=== PATIENT | female | born 1960 | race Caucasian/White ===

== ENCOUNTER → 2021-06-22 | Outpatient (CLI) | payer BC ==
[~2021-06-22] MED LIST: ACET1TAB12 PO; AEC81 PO; BISM262T18 PO; CALC1TAB2 PO; CLIN300C10 PO; DICL2100G TP; FOLI0.8T3 PO; HYDR-4060 PO; LEFL20TA18 PO; LEVO125T95 PO; LIDO1ADH48 TP; LORA2TAB2 PO; LUBI24CA2 PO; MULT-725 PO; PRED5TAB PO; PREG75 PO; TRAM50TA4 PO; UPAD15TA PO; VITA-164 PO; VITAMIN B12 PO; WARF2.5T PO
== END | disposition home or self-care (01) ==
LOC: OIH 08:08
PROVIDERS: ATTEND Internal Medicine
DX: R06.02 Shortness of breath (principal)
CPT/HCPCS: 71046

== ENCOUNTER 2021-06-23 15:14 | Inpatient (IN) | payer BC ==
[~2021-06-23] VITALS: Ht 162.6 cm; Wt 80.7 kg
[~2021-06-23 15:14] MED LIST changes: -AEC81 PO; -CLIN300C10 PO; -FOLI0.8T3 PO; -IOHEXOL 350 MG/ML 100ML INFUS..BTL IV ONE; -UPAD15TA PO
[2021-06-23 15:28] VITALS: BP 128/78
[2021-06-23 16:00] LABS: BASOPHILS % (AUTO) 0.8 % (0.0-5.0); EOSINOPHILS % (AUTO) 0.3 % (0.0-8.0); HEMATOCRIT 42.5 % (36-48); LYMPHOCYTES % (AUTO) 14.3 % (21.0-51.0); MEAN CORPUSCULAR HGB CONC 32.2 g/dL (32.0-36.0); MEAN CORPUSCULAR VOLUME 93.2 fL (79-99); MONOCYTES % (AUTO) 6.7 % (3.0-13.0); NEUTROPHILS % (AUTO) 77.6 % (40.0-77.0); PLATELET COUNT (AUTO) 231 K/uL (130-400); RED BLOOD CELL COUNT(AUTO) 4.56 MIL/uL (4.00-5.50); RED CELL DISTRIBUTION WIDTH 16.1 % (11.0-15.5); WHITE BLOOD COUNT (AUTO) 6.3 K/uL (4.8-10.8)
[2021-06-23 16:10] LABS: APPEARANCE,URINE Clear (CLEAR); BILIRUBIN,URINE Negative (NEGATIVE); COLOR,URINE Yellow (YELLOW); GLUCOSE, URINE (UA) Negative (NEGATIVE); KETONES,URINE Negative (NEGATIVE); LEUKOCYTE ESTERASE ,URINE Negative (NEGATIVE); NITRATE,URINE Negative (NEGATIVE); OCCULT BLOOD,URINE Negative (NEGATIVE); PH,URINE 6.5 (5.0-8.0); PROTEIN,URINE Negative (NEGATIVE); UROBILINOGEN,URINE 0.2 mg/dL (0.2-1.0)
[2021-06-23 16:12] LABS: INR 1.06 (0.85-1.15); PROTHROMBIN TIME 11.5 SEC (9.6-11.6)
[2021-06-23 16:13] LABS: PARTIAL THROMBOPLASTIN TIME 27.3 SEC (26.3-35.5)
[2021-06-23 16:23] LABS: CREATININE 0.8 mg/dL (0.5-1.5); POTASSIUM 3.8 mmol/L (3.5-5.1)
[2021-06-23 16:24] LABS: B-TYPE NATRIURETIC PEPTIDE 20 pg/mL (0-100)
[2021-06-23 16:28] LABS: ALBUMIN 3.5 g/dL (3.5-5.0); BILIRUBIN,TOTAL 0.7 mg/dL (0.2-1.0); TOTAL PROTEIN, SERUM 6.9 g/dL (6.0-8.3)
[2021-06-23] MEDS ORDERED: PRED5TAB PO (16:48)
[2021-06-23] MEDS ORDERED: CLIN300C10 PO (16:48)
[2021-06-23] MEDS ORDERED: FOLI0.8T3 PO (16:48)
[2021-06-23] MEDS ORDERED: UPAD15TA PO (16:48)
[2021-06-23] MEDS ORDERED: AEC81 PO (16:48)
[2021-06-23 18:00] VITALS: BP 138/86
[2021-06-23 20:08] VITALS: BP 130/72
[2021-06-23 21:00] VITALS: BP 137/73
[2021-06-23] MEDS: ENOXAPARIN SODIUM 80 MG/0.8 ML SQ SCH (22:06)
[2021-06-23 23:29] VITALS: BP 122/90
[2021-06-24] MEDS ORDERED: VOLTAREN 1% TP PRN (02:00)
[2021-06-24] MEDS ORDERED: HYDROCODONE/ACETAMINOPHEN 5/325 MG TAB PO PRN (02:00)
[2021-06-24] MEDS ORDERED: ASPERCREME TP SCH (02:00)
[2021-06-24] MEDS ORDERED: TRAMADOL HCL 50 MG TABLET PO PRN (02:00)
[2021-06-24 03:47] VITALS: BP 148/84
[2021-06-24 05:17] LABS: BASOPHILS % (AUTO) 1.4 % (0.0-5.0); EOSINOPHILS % (AUTO) 2.8 % (0.0-8.0); HEMATOCRIT 37.7 % (36-48); MEAN CORPUSCULAR HEMOGLOBIN 29.7 pg (27.0-33.0); MEAN CORPUSCULAR HGB CONC 32.6 g/dL (32.0-36.0); MEAN CORPUSCULAR VOLUME 91.1 fL (79-99); MONOCYTES % (AUTO) 14.9 % (3.0-13.0); NEUTROPHILS % (AUTO) 43.7 % (40.0-77.0); PLATELET COUNT (AUTO) 196 K/uL (130-400); RED BLOOD CELL COUNT(AUTO) 4.14 MIL/uL (4.00-5.50); RED CELL DISTRIBUTION WIDTH 15.9 % (11.0-15.5); WHITE BLOOD COUNT (AUTO) 4.2 K/uL (4.8-10.8)
[2021-06-24 05:37] LABS: ALBUMIN 2.9 g/dL (3.5-5.0); BILIRUBIN,TOTAL 0.6 mg/dL (0.2-1.0); CREATININE 0.7 mg/dL (0.5-1.5); POTASSIUM 4.4 mmol/L (3.5-5.1); TOTAL PROTEIN, SERUM 5.9 g/dL (6.0-8.3)
[2021-06-24 08:15] VITALS: BP 131/72
[2021-06-24] MEDS: ASPIRIN 81 MG EC TAB PO SCH (08:31)
[2021-06-24] MEDS: CLINDAMYCIN 150 MG CAP PO SCH ×3 (08:31→20:21)
[2021-06-24] MEDS: LEVOTHYROXINE 125 MCG TABLET PO SCH (08:32)
[2021-06-24] MEDS: PREDNISONE 5 MG TABLET PO SCH (08:33)
[2021-06-24] MEDS: FOLIC ACID 1 MG TABLET PO SCH (08:33)
[2021-06-24] MEDS: **HM** VIT B12 PO SCH (08:37)
[2021-06-24] MEDS: ENOXAPARIN SODIUM 80 MG/0.8 ML SQ SCH ×2 (08:37→20:27)
[2021-06-24 11:42] VITALS: BP 115/72
[2021-06-24 16:10] VITALS: BP 120/73
[2021-06-24 20:00] VITALS: BP 110/79
[2021-06-24] MEDS: VITAMIN E 400 UNIT CAPSULE PO SCH (20:20)
[2021-06-24] MEDS: CA 600MG+VIT D 400 UNIT TAB 1 TAB TABLET PO SCH (20:21)
[2021-06-24] MEDS: PREGABALIN 75 MG CAPSULE PO SCH (20:21)
[2021-06-24] MEDS: MULTIVITAMIN WITH MINERALS TABLET PO SCH (20:21)
[2021-06-24] MEDS: RINVOQ 15 MG PO SCH (20:27)
[2021-06-24] MEDS: **HM** LEFLUNOMIDE 20MG PO SCH (20:27)
[2021-06-24 23:53] VITALS: BP 128/80
[2021-06-25 03:58] VITALS: BP 141/78
[2021-06-25 05:46] LABS: MEAN CORPUSCULAR HEMOGLOBIN 29.9 pg (27.0-33.0); MEAN CORPUSCULAR HGB CONC 32.3 g/dL (32.0-36.0); MEAN CORPUSCULAR VOLUME 92.4 fL (79-99); RED BLOOD CELL COUNT(AUTO) 4.22 MIL/uL (4.00-5.50); RED CELL DISTRIBUTION WIDTH 16.2 % (11.0-15.5); WHITE BLOOD COUNT (AUTO) 5.3 K/uL (4.8-10.8)
[2021-06-25 06:06] LABS: CREATININE 0.8 mg/dL (0.5-1.5); POTASSIUM 4.1 mmol/L (3.5-5.1)
[2021-06-25 08:17] VITALS: BP 154/73
[2021-06-25] MEDS: **HM** VIT B12 PO SCH (09:00)
[2021-06-25] MEDS: ASPIRIN 81 MG EC TAB PO SCH (09:41)
[2021-06-25] MEDS: ENOXAPARIN SODIUM 80 MG/0.8 ML SQ SCH ×2 (09:41→21:41)
[2021-06-25] MEDS: FOLIC ACID 1 MG TABLET PO SCH (09:41)
[2021-06-25] MEDS: CLINDAMYCIN 150 MG CAP PO SCH ×3 (09:41→21:40)
[2021-06-25] MEDS: PREDNISONE 5 MG TABLET PO SCH (09:41)
[2021-06-25] MEDS: LEVOTHYROXINE 125 MCG TABLET PO SCH (09:41)
[2021-06-25 12:16] VITALS: BP 116/61
[2021-06-25 16:50] VITALS: BP 120/81
[2021-06-25 20:21] VITALS: BP 137/79
[2021-06-25] MEDS: **HM** LEFLUNOMIDE 20MG PO SCH (21:00)
[2021-06-25] MEDS: RINVOQ 15 MG PO SCH (21:00)
[2021-06-25] MEDS: VITAMIN E 400 UNIT CAPSULE PO SCH (21:40)
[2021-06-25] MEDS: PREGABALIN 75 MG CAPSULE PO SCH (21:40)
[2021-06-25] MEDS: CA 600MG+VIT D 400 UNIT TAB 1 TAB TABLET PO SCH (21:41)
[2021-06-25] MEDS: MULTIVITAMIN WITH MINERALS TABLET PO SCH (21:45)
[2021-06-26 00:03] VITALS: BP 141/86
[2021-06-26 04:00] VITALS: BP 147/75
[2021-06-26 08:00] VITALS: BP 145/75
[2021-06-26] MEDS: ASPIRIN 81 MG EC TAB PO SCH (08:13)
[2021-06-26] MEDS: CLINDAMYCIN 150 MG CAP PO SCH ×2 (08:14→13:29)
[2021-06-26] MEDS: PREDNISONE 5 MG TABLET PO SCH (08:14)
[2021-06-26] MEDS: LEVOTHYROXINE 125 MCG TABLET PO SCH (08:14)
[2021-06-26] MEDS: FOLIC ACID 1 MG TABLET PO SCH (08:14)
[2021-06-26] MEDS: ENOXAPARIN SODIUM 80 MG/0.8 ML SQ SCH (08:15)
[2021-06-26] MEDS: **HM** VIT B12 PO SCH (08:15)
[2021-06-26 12:00] VITALS: BP 122/65
[2021-06-26 16:00] VITALS: BP 115/78
== END 2021-06-26 17:00 | disposition home or self-care (01) | DRG 176 ==
LOC: EDH 15:14 → EDHIP 17:00 → 3BH 20:21
PROVIDERS: ADMIT Internal Medicine; ATTEND Internal Medicine
DX: I26.99 Other pulmonary embolism without acute cor pulmonale (principal); D68.62 Lupus anticoagulant syndrome; E03.9 Hypothyroidism, unspecified; E66.9 Obesity, unspecified; R09.02 Hypoxemia; M06.9 Rheumatoid arthritis, unspecified; Z79.82 Long term (current) use of aspirin; Z68.30 Body mass index [BMI] 30.0-30.9, adult; Z79.01 Long term (current) use of anticoagulants; Z86.718 Personal history of other venous thrombosis and embolism; Z88.0 Allergy status to penicillin
CPT/HCPCS: 36415; 71046; 80048; 80053; 81003; 83880; 84484; 85025; 85027; 85378; 85610; 85730; 93005; 93306; 93356; 93970; G0378; J1650; J7512

== ENCOUNTER → 2021-06-23 | Outpatient (CLI) | payer BC ==
[~2021-06-23] MED LIST changes: +IOHEXOL 350 MG/ML 100ML INFUS..BTL IV ONE
== END | disposition home or self-care (01) ==
LOC: RAH 14:03
PROVIDERS: ATTEND Internal Medicine
DX: I26.99 Other pulmonary embolism without acute cor pulmonale (principal); R06.02 Shortness of breath
CPT/HCPCS: 71275; Q9967

== ENCOUNTER → 2022-01-17 | Outpatient (CLI) | payer BC ==
[~2022-01-17] MED LIST changes: -ACET1TAB12 PO; +AEC81 PO; +CLIN-141 PO; +FOLI0.8T3 PO; -LORA2TAB2 PO; -LUBI24CA2 PO; +UPAD15TA PO; -WARF2.5T PO
== END | disposition home or self-care (01) ==
LOC: RAH 16:32
PROVIDERS: ATTEND Podiatrist
DX: S92.505D Nondisplaced unspecified fracture of left lesser toe(s), subsequent encounter for fracture with routine healing (principal); X58.XXXD Exposure to other specified factors, subsequent encounter
CPT/HCPCS: 73630

== ENCOUNTER → 2022-02-09 | Outpatient (CLI) | payer BC | END | disposition home or self-care (01) | LOC: RAH 10:00 | PROVIDERS: ATTEND Podiatrist | DX: S92.505D Nondisplaced unspecified fracture of left lesser toe(s), subsequent encounter for fracture with routine healing (principal); X58.XXXD Exposure to other specified factors, subsequent encounter | CPT/HCPCS: 73630 ==

== ENCOUNTER 2022-06-27 19:45 | Emergency (ER) | payer BC ==
[~2022-06-27] VITALS: Ht 162.6 cm; Wt 95.3 kg
[2022-06-27 19:45] VITALS: BP 130/70
[2022-06-27] MEDS ORDERED: KETOROLAC 30MG VIAL (30MG/ML) ONE (20:19)
[2022-06-27] MEDS ORDERED: ORPHENADRINE CITRATE 30 MG/ML ML ONE (20:19)
[2022-06-27] MEDS ORDERED: ORPHENADRINE CITRATE 30 MG/ML ML IVP ONE (20:30)
[2022-06-27] MEDS ORDERED: KETOROLAC 30MG VIAL (30MG/ML) IVP ONE (20:30)
[2022-06-27] MEDS ORDERED: CYCL10TA16 PO (21:02)
[2022-06-27] MEDS ORDERED: FENTANYL CITRATE PF 50 MCG/1 ML 2ML VIAL IVP ONE (21:30)
== END 2022-06-27 21:40 | disposition home or self-care (01) ==
LOC: EDH 19:45
DX: M54.42 Lumbago with sciatica, left side (principal); Z79.1 Long term (current) use of non-steroidal anti-inflammatories (NSAID); Z79.52 Long term (current) use of systemic steroids; Z79.82 Long term (current) use of aspirin; Z88.0 Allergy status to penicillin
CPT/HCPCS: 99284; 96374; 96375; J3010; J1885; J2360

== ENCOUNTER → 2022-06-28 | Outpatient (CLI) | payer BC ==
[~2022-06-28] MED LIST changes: +CYCL10TA16 PO; +RIVA20TA PO
== END | disposition home or self-care (01) ==
LOC: RAH 13:27
PROVIDERS: ATTEND Neurological Surgery
DX: M51.16 Intervertebral disc disorders with radiculopathy, lumbar region (principal); M48.061 Spinal stenosis, lumbar region without neurogenic claudication; E05.00 Thyrotoxicosis with diffuse goiter without thyrotoxic crisis or storm; K44.9 Diaphragmatic hernia without obstruction or gangrene
CPT/HCPCS: 72148

== ENCOUNTER → 2022-07-02 | Outpatient (CLI) | payer BC ==
[~2022-07-02] MED LIST changes: +CLINDAMYCIN IVPB 900MG/50ML 50 ML IV ONE
[2022-07-02 11:11] LABS: BASOPHILS % (AUTO) 1.1 % (0.0-5.0); EOSINOPHILS % (AUTO) 4.5 % (0.0-8.0); HEMATOCRIT 45.1 % (36-48); LYMPHOCYTES % (AUTO) 26.4 % (21.0-51.0); MEAN CORPUSCULAR HGB CONC 31.7 g/dL (32.0-36.0); MEAN CORPUSCULAR VOLUME 94.7 fL (79-99); MONOCYTES % (AUTO) 11.1 % (3.0-13.0); NEUTROPHILS % (AUTO) 56.5 % (40.0-77.0); PLATELET COUNT (AUTO) 336 K/uL (130-400); RED BLOOD CELL COUNT(AUTO) 4.76 MIL/uL (4.00-5.50); RED CELL DISTRIBUTION WIDTH 15.1 % (11.0-15.5); WHITE BLOOD COUNT (AUTO) 8.5 K/uL (4.8-10.8)
[2022-07-02 11:20] LABS: CREATININE 0.7 mg/dL (0.5-1.5); POTASSIUM 3.6 mmol/L (3.5-5.1)
[2022-07-02 11:31] LABS: INR 0.96 (0.85-1.15); PROTHROMBIN TIME 10.5 SEC (9.6-11.6)
[2022-07-02 11:32] LABS: PARTIAL THROMBOPLASTIN TIME 23.3 SEC (26.3-35.5)
== END | disposition home or self-care (01) ==
LOC: EDSTATUS 08:00 → DAH 10:00
PROVIDERS: ATTEND Neurological Surgery
DX: U07.1 COVID-19 (principal); Z01.818 Encounter for other preprocedural examination; M54.16 Radiculopathy, lumbar region; M48.062 Spinal stenosis, lumbar region with neurogenic claudication; Z79.01 Long term (current) use of anticoagulants; Z79.82 Long term (current) use of aspirin; Z86.711 Personal history of pulmonary embolism; Z79.899 Other long term (current) drug therapy; Z98.890 Other specified postprocedural states
CPT/HCPCS: 36415; 71045; 80048; 85025; 85610; 85730; 87426

== ENCOUNTER 2022-07-12 12:00 | Observation (INO) | payer BC ==
[~2022-07-12] VITALS: Ht 162.6 cm; Wt 86.3 kg
[~2022-07-12 12:00] MED LIST changes: -BISM262T18 PO; -CLIN-141 PO; -CLINDAMYCIN IVPB 900MG/50ML 50 ML IV ONE; -CYCL10TA16 PO; -DICL2100G TP; -HYDR-4060 PO; -RIVA20TA PO; -UPAD15TA PO
[2022-07-12 14:29] VITALS: BP 131/64
[2022-07-16] MEDS ORDERED: CLINDAMYCIN IVPB 900MG/50ML 50 ML IV SCH (08:00)
[2022-07-17] VITALS (24 sets, daily range): BP systolic 90–160; BP diastolic 52–88
[2022-07-17] MEDS: CLINDAMYCIN IVPB 900MG/50ML 50 ML IV SCH ×2 (06:00→08:00)
[2022-07-17] MEDS ORDERED: LACTATED RINGERS 1000ML 1,000 ML IV ONE (06:13)
[2022-07-17] MEDS ORDERED: CYCL10TA16 PO (06:48)
[2022-07-17] MEDS ORDERED: RIVA20TA PO (06:49)
[2022-07-17] MEDS ORDERED: CEFAZOLIN SODIUM 1 GM VIAL ONE (07:08)
[2022-07-17] MEDS ORDERED: BUPIVACAINE/EPI/PF 0.25% 30ML VIAL IJ ONE (07:08)
[2022-07-17] MEDS ORDERED: THROMBIN-JMI 20000 UNIT KIT TP ONE (07:09)
[2022-07-17] MEDS ORDERED: MORPHINE PF 100MG/10ML AMP IV ONE ×2 (07:09→07:10)
[2022-07-17] MEDS ORDERED: MIDAZOLAM HCL 1 MG/ML 2ML VIAL ONE (07:16)
[2022-07-17] MEDS ORDERED: GLYCOPYRROLATE 1 MG/5 ML SYRINGE ONE ×2 (07:16→11:15)
[2022-07-17] MEDS ORDERED: PROPOFOL 10 MG/ML 20ML VIAL IV ONE (07:16)
[2022-07-17] MEDS ORDERED: FENTANYL CITRATE PF 50 MCG/1 ML 2ML VIAL ONE (07:16)
[2022-07-17] MEDS ORDERED: ROCURONIUM 10MG/1ML SYR 10 MG/ML ML ONE (07:16)
[2022-07-17] MEDS ORDERED: PHENYLEPHRINE HCL 10 MG/ML 1ML VIAL IV ONE (07:17)
[2022-07-17] MEDS ORDERED: LIDOCAINE PF 100MG/5ML (2%) SYRINGE 5ML ONE (07:17)
[2022-07-17] MEDS ORDERED: PROPOFOL 1000 MG/100 ML 200 ML IV ONE (07:26)
[2022-07-17] MEDS ORDERED: DEXAMETHASONE SOD PHOSPHATE 4 MG/ML 1ML VIAL ONE ×2 (08:23→08:26)
[2022-07-17] MEDS ORDERED: ONDANSETRON 4MG INJ ONE (08:31)
[2022-07-17] MEDS ORDERED: EPHEDRINE SULFATE 50 MG/ML AMPULE ONE (11:23)
[2022-07-17] MEDS ORDERED: LIDOCAINE TP SCH (13:00)
[2022-07-17] MEDS: LACTATED RINGERS 1000ML 1,000 ML IV SCH (13:00)
[2022-07-17] MEDS ORDERED: PROMETHAZINE HCL 25 MG/ML 1ML AMPULE IM PRN (13:00)
[2022-07-17] MEDS ORDERED: MORPHINE 2 MG SYG IVP PRN (13:00)
[2022-07-17] MEDS ORDERED: TRAMADOL HCL 50 MG TABLET PO PRN (13:00)
[2022-07-17] MEDS ORDERED: 0.9%NACL 10ML VIAL IVP PRN (13:00)
[2022-07-17] MEDS ORDERED: CLINDAMYCIN IVPB 900MG/50ML 50 ML IV SCH (13:00)
[2022-07-17] MEDS: DEXAMETHASONE SOD PHOSPHATE 4 MG/ML 1ML VIAL IVP SCH ×2 (13:00→21:17)
[2022-07-17] MEDS: CYCLOBENZAPRINE HCL 10 MG TABLET PO SCH ×2 (14:00→21:18)
[2022-07-17] MEDS ORDERED: VITAMIN E 400 UNIT CAPSULE PO SCH (21:00)
[2022-07-17] MEDS ORDERED: MULTIVITAMIN TABLET PO SCH (21:00)
[2022-07-17] MEDS ORDERED: CA 600MG+VIT D 400 UNIT TAB 1 TAB TABLET PO SCH (21:00)
[2022-07-17] MEDS ORDERED: LEFLUNOMIDE 20 MG PO SCH (21:00)
[2022-07-17] MEDS ORDERED: PREGABALIN 75 MG CAPSULE PO SCH (21:00)
[2022-07-17] MEDS: HYDROCODONE/ACETAMINOPHEN 5/325 MG TAB PO PRN (21:18)
[2022-07-18] MEDS: DEXAMETHASONE SOD PHOSPHATE 4 MG/ML 1ML VIAL IVP SCH ×2 (02:11→06:19)
[2022-07-18] MEDS: LACTATED RINGERS 1000ML 1,000 ML IV SCH (02:42)
[2022-07-18] MEDS: HYDROCODONE/ACETAMINOPHEN 5/325 MG TAB PO PRN ×2 (02:42→07:31)
[2022-07-18 04:39] VITALS: BP 140/75
[2022-07-18] MEDS ORDERED: LEVOTHYROXINE 125 MCG TABLET PO SCH (06:30)
[2022-07-18 07:30] VITALS: BP 120/69
[2022-07-18] MEDS ORDERED: PREDNISONE 5 MG TABLET PO SCH (09:00)
[2022-07-18] MEDS ORDERED: ENOXAPARIN SODIUM 40 MG/0.4 ML SYRINGE SQ SCH (09:00)
[2022-07-18] MEDS ORDERED: CYANOCOBALAMIN (VITAMIN B-12) 1,000 MCG TABLET PO SCH (09:00)
[2022-07-18] MEDS ORDERED: FOLIC ACID 1 MG TABLET PO SCH (09:00)
[2022-07-18] MEDS ORDERED: ASPIRIN 81 MG EC TAB PO SCH (09:00)
[2022-07-18] MEDS: CYCLOBENZAPRINE HCL 10 MG TABLET PO SCH (09:06)
== END 2022-07-18 10:30 | disposition home or self-care (01) ==
LOC: EDSTATUS 07-16 11:00 → DAHIP 07-17 05:57 → OBSVTOIN 07-17 05:57 → INTOOBSV 07-17 05:57 → 4CH 07-17 14:00
PROVIDERS: ADMIT Neurological Surgery; ATTEND Neurological Surgery
DX: M48.061 Spinal stenosis, lumbar region without neurogenic claudication (principal); Z20.822 Contact with and (suspected) exposure to COVID-19; I10 Essential (primary) hypertension; M54.16 Radiculopathy, lumbar region; M25.78 Osteophyte, vertebrae; M43.16 Spondylolisthesis, lumbar region; M51.26 Other intervertebral disc displacement, lumbar region; Z79.01 Long term (current) use of anticoagulants; Z86.711 Personal history of pulmonary embolism; Z79.899 Other long term (current) drug therapy
CPT/HCPCS: 87426; 63047; 63048 ×4; 22612; 22614; 20937; 96365; 96375; 72020; 96376; 96372; G0378 ×21; A4663; J7120 ×3; A4344; J3010; J0690; J3490 ×7; J2001; J2250; J2704 ×2; J2274 ×2; J2405; J1100 ×5; J2370; A6219; A4649 ×2; A4215; A4223; A4222; A4221; A4600; J7512; J1650

== ENCOUNTER 2022-08-07 12:56 | Emergency (ER) | payer BC ==
[~2022-08-07] VITALS: Ht 162.6 cm; Wt 86.2 kg
[~2022-08-07 12:56] MED LIST changes: +CYCL10TA16 PO; +RIVA20TA PO; -TRAM50TA4 PO
[2022-08-07] MEDS ORDERED: ORPHENADRINE CITRATE 30 MG/ML ML IM STA (13:33)
[2022-08-07] MEDS ORDERED: KETOROLAC 30MG VIAL (30MG/ML) IM STA (13:34)
[2022-08-07 14:56] VITALS: BP 151/70
[2022-08-07] MEDS ORDERED: ACETAMINOPHEN 325 MG TAB PO ONE (15:30)
[2022-08-07] MEDS ORDERED: ACET-66 PO (15:51)
== END 2022-08-07 16:19 | disposition home or self-care (01) ==
LOC: EDH 12:56
DX: M71.22 Synovial cyst of popliteal space [Baker], left knee (principal); M60.862 Other myositis, left lower leg; M54.32 Sciatica, left side; M19.90 Unspecified osteoarthritis, unspecified site; E03.9 Hypothyroidism, unspecified; Z98.890 Other specified postprocedural states; Z79.899 Other long term (current) drug therapy; Z86.718 Personal history of other venous thrombosis and embolism; Z79.82 Long term (current) use of aspirin; Z88.0 Allergy status to penicillin
CPT/HCPCS: 99284; 93971; 96372 ×2; J1885; J2360

== ENCOUNTER → 2022-08-08 | Outpatient (CLI) | payer BC ==
[~2022-08-08] MED LIST changes: +ACET-66 PO; +GADOTERATE MEGLUMINE 10 MMOL/20 ML VIAL IV ONE
== END | disposition home or self-care (01) ==
LOC: RAH 10:03
PROVIDERS: ATTEND Physical Medicine & Rehabilitation
DX: S33.130A Subluxation of L3/L4 lumbar vertebra, initial encounter (principal); M54.16 Radiculopathy, lumbar region; X58.XXXA Exposure to other specified factors, initial encounter; Y93.89 Activity, other specified; Y92.89 Other specified places as the place of occurrence of the external cause; Y99.8 Other external cause status
CPT/HCPCS: 72158; A9575

== ENCOUNTER → 2022-09-10 | Outpatient (CLI) | payer BC ==
[~2022-09-10] MED LIST changes: -GADOTERATE MEGLUMINE 10 MMOL/20 ML VIAL IV ONE
== END | disposition home or self-care (01) ==
LOC: RAH 11:03
PROVIDERS: ATTEND Physical Medicine & Rehabilitation
DX: I82.402 Acute embolism and thrombosis of unspecified deep veins of left lower extremity (principal); M71.22 Synovial cyst of popliteal space [Baker], left knee
CPT/HCPCS: 93971

== ENCOUNTER → 2022-09-17 | Outpatient (CLI) | payer BC | END | disposition home or self-care (01) | LOC: RAH 11:28 | PROVIDERS: ATTEND Internal Medicine | DX: S93.602A Unspecified sprain of left foot, initial encounter (principal); X58.XXXA Exposure to other specified factors, initial encounter; Y93.89 Activity, other specified; Y92.89 Other specified places as the place of occurrence of the external cause; Y99.8 Other external cause status | CPT/HCPCS: 73620 ==

== ENCOUNTER → 2023-02-01 | Outpatient (CLI) | payer BC ==
[~2023-02-01] MED LIST changes: -VITA-164 PO; +VITA-348 PO
== END | disposition home or self-care (01) ==
LOC: RAH 11:49
PROVIDERS: ATTEND Physical Medicine & Rehabilitation
DX: M47.816 Spondylosis without myelopathy or radiculopathy, lumbar region (principal); M48.062 Spinal stenosis, lumbar region with neurogenic claudication; M51.36 Other intervertebral disc degeneration, lumbar region
CPT/HCPCS: 72148

== ENCOUNTER → 2023-05-31 | Outpatient (CLI) | payer BC ==
[~2023-05-31] MED LIST changes: +GADOTERATE MEGLUMINE 10 MMOL/20 ML VIAL IV ONE
== END | disposition home or self-care (01) ==
LOC: RAH 13:03
PROVIDERS: ATTEND Otolaryngology Plastic Surgery within the Head & Neck
DX: H90.0 Conductive hearing loss, bilateral (principal)
CPT/HCPCS: 70553; A9575

== ENCOUNTER 2024-11-09 15:51 | Emergency (ER) | payer BC ==
[~2024-11-09] VITALS: Ht 162.6 cm; Wt 90.7 kg
[~2024-11-09 15:51] MED LIST changes: -GADOTERATE MEGLUMINE 10 MMOL/20 ML VIAL IV ONE; -LEFL20TA18 PO; +LEFL20TA22 PO
--- NOTE | 2024-11-09 16:01 | ERN ---
ED Note History of Present Illness Stated Complaint: RIGHT ARM SCRAPE ON XERALTO Chief Complaint: Abrasion Time Seen by MD: 15:57 Dictation: PATIENT IS A 64-YEAR-OLD MALE WHO IS BLOOD THINNERS WITH COMPLAINTS OF BLEEDING TO AN ABRASION TO HER RIGHT FOREARM. SHE STATES IT WITH HOME IN HER LIVING ROOM SHE BRUSHED AGAINST SOMETHING SHE IS NOT SURE WHAT IT WAS HOWEVER IT HAS BEEN BLEEDING FOR MORE THAN AN HOUR. THE BLEEDING IS SLOW YET CONTINUOUS. NO PAIN AT THIS TIME. LAST TETANUS SHOT IS UNKNOWN. Allergies: Coded Allergies: Penicillins (Unverified Allergy, Unknown, 04/16/13) Home Meds Active Scripts Acetaminophen (Tylenol) 500 Mg Tab, 500 MG PO Q6HPRN PRN for PAIN for 5 Days, #30 TAB Prov:SANA MANLEY MD 08/07/22 Reported Medications Rivaroxaban (Xarelto) 20 Mg Tablet, 20 MG PO DAILY, TAB 07/17/22 Cyclobenzaprine HCl (Flexeril) 10 Mg Tab, 10 MG PO TID, TAB 07/17/22 Prednisone (Prednisone) 5 Mg Tablet, 5 MG PO DAILY, TAB 06/23/21 Aspirin (ASPIRIN 81 MG ECTAB) 81 Mg Ectab, 81 MG PO DAILY, TAB.EC 06/23/21 Folic Acid (Folic Acid) 0.8 Mg Tablet, 1 MG PO DAILY, TAB 06/23/21 Lidocaine (Aspercreme) 1 Each Adh..patch, 1 EACH TP HSPRN, ADH.PATCH 03/23/19 [Vitamin B12] No Conflict Check, 1 TAB PO DAILY 03/23/19 Leflunomide (Leflunomide) 20 Mg Tablet, 20 MG PO HS, TAB 03/23/19 Levothyroxine Sodium (Synthroid 125 Mcg Tab) 125 Mcg Tablet, 125 MCG PO DAILY, TAB 03/23/19 Pregabalin (Lyrica) 75 Mg Cap, 150 MG PO HS, CAP 03/23/19 Calcium Carbonate/Vitamin D3 (Caltrate 600 + D Tablet) 1 Each Tablet, 2 EACH PO HS, TAB 03/23/19 Vitamin E Mixed (Vitamin E) 400 Unit Capsule, 800 UNIT PO HS, CAP 03/23/19 Multivitamin (Once Daily) 1 Each Tablet, 1 EACH PO HS, TAB 03/23/19 Past Medical History Past Medical History: Other Additional Past Medical Hx: BLOOD CLOTS AND RA Surgical History: Appendectomy, Cholecystectomy, Other Surgical History Other: KNEE, BACK PSYCH History: no pertinent psych hx Family History: Negative Social History: Negative History: Not Applicable RN Note Reviewed/Agreed w/PFSH: Yes Review of System Dictation CONSTITUTIONAL: NEGATIVE EXCEPT FOR HPI HEAD/FACE: NEGATIVE EXCEPT FOR HPI EENT: NEGATIVE EXCEPT FOR HPI RESPIRATORY: NEGATIVE EXCEPT FOR HPI GASTROINTESTINAL/ABDOMINAL: NEGATIVE EXCEPT FOR HPI GENITOURINARY: NEGATIVE EXCEPT FOR HPI MUSCULOSKELETAL: NEGATIVE EXCEPT FOR HPI INTEGUMENTARY: NEGATIVE EXCEPT FOR HPI BLEEDING SUPERFICIAL ABRASION TO RIGHT MEDIAL FOREARM NEUROLOGICAL/PSYCH: NEGATIVE EXCEPT FOR HPI HEMATOLOGIC/LYMPHATIC: NEGATIVE EXCEPT FOR HPI ALL SYSTEMS NEGATIVE, EXCEPT NOTED ABOVE. 13 POINT REVIEW OF SYSTEMS ASSESSED AND ALL NEGATIVE EXCEPT FOR ABOVE. Initial Vital Sign VS Vital Signs Date Time Temp Pulse Resp B/P (MAP) Pulse Ox O2 Delivery O2 Flow Rate FiO2 11/09/24 15:52 97.5 99 20 161/89 100 Room Air 0 Physical Exam Dictation VITAL SIGNS REVIEWED NO PAIN GENERAL APPEARANCE: ALERT, ORIENTED X 3, NO ACUTE DISTRESS, WELL DEVELOPED, NOURISHED. HEAD AND FACE: NON-TRAUMATIC. EYES: PERRL, PINK CONJUNCTIVAS, EYELID NO TRAUMA, ANTERIOR CHAMBER WITH ARCUS SENILIS. EARS: PINNAS INTACT AND NO SIGNS OF TRAUMA OR ERYTHEMA EAR CANALS CLEAR AND NO DISCHARGE TM NO ERYTHEMA NOSE: NO DISCHARGE, NO BLEEDING. OROPHARYNX: MOUTH NORMAL, TONGUE PINK, PHARYNX CLEAR,NO ERYTHEMA, TONSILS NO EXUDATES, NO ABSCESSES NOTED, MUCOUS MEMBRANE MOIST NECK: SUPPLE, NON-TENDER, NO THYROMEGALY, NO MASSES, NO JVD, NO BRUITS BREAST:DEFERRED CHEST:NO TENDERNESS, NO CREPITUS, NO PARADOXICAL MOVEMENT, NO RETRACTIONS LUNGS:CLEAR, WELL-VENTILATED, SYMMETRIC, NO RALES, NO WHEEZING, NO RHONCHI, NO STRIDOR, GOOD BREATH SOUNDS BILATERALLY HEART: REGULAR RATE, REGULAR RHYTHM, NO MURMUR, NO GALLOPS VASCULAR: NO PERIPHERAL EDEMA, ABDOMEN: SOFT, POSITIVE BOWEL SOUNDS, NONDISTENDED, NO GUARDING, NONTENDER, NO REBOUND, NO MASSES NO HEPATOMEGALY, NO SPLENOMEGALY, NO ANGELES'S SIGN, NO HERNIAS. RECTAL: DEFERRED GENITAL: DEFERRED NEUROLOGICAL: NORMAL SPEECH, MOTOR FUNCTION INTACT, SENSORY FUNCTION INTACT MUSCULOSKELETAL: NECK NONTENDER, FULL RANGE OF MOTION, BACK NONTENDER, FULL RANGE OF MOTION, EXTREMITIES: NONTENDER, FULL RANGE OF MOTION SKIN: COLOR PINK, SMALL SUPERFICIAL ABRASION TO RIGHT LATERAL FOREARM. CAPILLARY BLEEDING NOTED HOWEVER VERY SMALL YET CONTINUE NO PULSATILE BLEED LYMPHATIC: DEFERRED Results (Laboratory/Radiology) Labs Reviewed?: Yes ED Course ED Course Orders Procedure Category Date Status Time Tetanus,Diphtheria PHA 11/09/24 Complete Tox [Adult] (Diphther 16:00 *Nursing CPOE 11/09/24 Transmitted Communication: 15:57 Current Medications Medications (Trade) Dose Ordered Sig/Live Route PRN Reason Start Time Stop Time Status Last Admin Dose Admin Tetanus/ Diphtheria Toxoids Adsorbed (DiphthERIA-teTANUS TOXOID [ADULT]/ DECAVAC) 0.5 ml ONCE ONCE IM 11/09/24 16:00 11/09/24 16:01 DC 11/09/24 16:23 Vital Signs Date Time Temp Pulse Resp B/P (MAP) Pulse Ox O2 Delivery O2 Flow Rate FiO2 11/09/24 15:52 97.5 99 20 161/89 100 Room Air 0 Medical Decision Making [facility] MEDICAL DISCHARGE MAKING BASED ON TREATMENT FOR BLEEDING ABRASION TO RIGHT FOREARM. TETANUS SHOT WAS UPDATED PRESSURE DRESSING WAS APPLIED WITH QUICK CLOT AND NO BLEEDING AT THIS TIME. DISCHARGED HOME WITH DRESSING CLEAN DRY AND INTACT. PATIENT AND TOLD DO NOT REMOVE DRESSING UNTIL SEEN BY HER PRIMARY CARE DOCTOR. Procedure Procedure Dictation: [id number], PROCEDURE EXPLAINED TO PATIENT SHE AGREED TO PROCEED. ABRASION TO RIGHT MEDIAL FOREARM CLEANED WITH WOUND CLEANSER QUICK CLOT WITH4 X PLACED WITH DERMOPLAST DRESSING NO ACTIVE BLEEDING AT THIS TIME [facility] INTACT TO RIGHT HAND. PATIENT INSTRUCTED NOT TO REMOVE DRESSING UNTIL SHE SEES HER PRIMARY CARE DOCTOR DX & DISP Disposition: Discharge Departure Impression: Primary Impression: Abrasion forearm Additional Impression: Bleeding Condition: Stable Additional Instructions: FOLLOW-UP WITH PRIMARY CARE PROVIDER IN 1 TO 2 DAYS. TAKE MEDICATIONS DIRECTED HERE IN THE EMERGENCY ROOM. OKAY TO CONTINUE HOME MEDICATIONS UNLESS OTHERWISE DISCUSSED DURING YOUR VISIT IN THE EMERGENCY ROOM TODAY. RETURN TO YOUR NEAREST EMERGENCY ROOM IF SYMPTOMS WORSEN OR IF THERE IS NO IMPROVEMENT. CALL 911 IF YOU NEED IMMEDIATE ASSISTANCE. TAKE TYLENOL OR MOTRIN [id number] NEEDED AND IF NO CONTRAINDICATIONS ARE PRESENT. INCREASE ORAL HYDRATION. A WOUND CULTURE OR URINE CULTURE WAS ORDERED HERE IN THE EMERGENCY ROOM DEPARTMENT PLEASE FOLLOW-UP WITH PRIMARY CARE PROVIDER AND ADVISE THEM TO GET REPEAT PORTS FROM OUR FACILITY. IF YOU HAD ANY BESSY WRAP/SPLINTS THAT WERE APPLIED HERE, PLEASE DO NOT REMOVE THEM UNTIL YOU SEE YOUR PRIMARY CARE OR SPECIALTY. DO NOT REMOVE DRESSING UNTIL CLEARED BY YOUR PRIMARY CARE DOCTOR. KEEP DRESSING CLEAN AND DRY. Referrals: STEVAN ALVARES MD (PCP) Time of Disposition: 17:28 I have reviewed the case, and I agree with, Diagnosis and Plan ITZEL FAJARDO NP Nov 09, 2024 16:01
[2024-11-09] MEDS: teTANUS/diphthERIA TOXOID [ADULT] 0.5 ML VIAL IM ONE (16:23)
[2024-11-09 17:42] VITALS: BP 141/62; PULSE 88; RESP 18; TEMP 98.7; O2SAT 100
== END 2024-11-09 18:04 | disposition home or self-care (01) ==
LOC: EDH 15:51
DX: S50.811A Abrasion of right forearm, initial encounter (principal); Z79.01 Long term (current) use of anticoagulants; Z79.52 Long term (current) use of systemic steroids; Z79.69 Long term (current) use of other immunomodulators and immunosuppressants; Z79.82 Long term (current) use of aspirin; Z79.890 Hormone replacement therapy; Z88.0 Allergy status to penicillin; Z90.49 Acquired absence of other specified parts of digestive tract; X58.XXXA Exposure to other specified factors, initial encounter; Y93.89 Activity, other specified; Y92.89 Other specified places as the place of occurrence of the external cause; Y99.8 Other external cause status
CPT/HCPCS: 90471; 90714; 99284